=== PATIENT | female | born 1990 | race Caucasian/White ===

== ENCOUNTER 2023-07-15 11:57 | Inpatient (IN) ==
[2023-07-15 13:03] LABS: Urine Appearance Cloudy
[2023-07-15 13:06] LABS: Urine Color Orange; Urine Specific Gravity 1.032 (1.002-1.030)
[2023-07-15 13:11] LABS: Urine Bacteria 1+ /HPF (Absent); Urine Red Blood Cell 3+(>10/hpf) /HPF (0-Trace); Urine Squamous Epithelial Cell Present /HPF (Absent); Urine White Blood Cell 2+(11-20/hpf) /HPF (0-Trace)
[2023-07-15] MEDS: HYDROcodone/ACETAMIN 5/325 mg TAB PO ONE (14:15)
[2023-07-15] MEDS: Ondansetron ODT 4 mg TAB 4 MG TAB SL ONE (14:16)
[2023-07-15 16:16] LABS: Hematocrit 40.3 % (35-45); Hemoglobin 13.6 g/dL (11.5-14.3); Mean Corpuscular Hemoglobin 28.9 pg (27-33); Mean Corpuscular Hgb Conc 33.8 g/dL (31-36); Mean Corpuscular Volume 85.6 fL (80-97); Mean Platelet Volume 8.5 fL (7.5-11.2); Platelet Count 394 10^3/uL (150-450); Red Cell Distribution Width 13.4 % (12-17); White Blood Count 26.6 10^3/uL (3.8-11.8)
[2023-07-15 16:42] LABS: Albumin 4.5 g/dL (3.2-5.2); Albumin/Globulin Ratio 1.4 (1-3); C Reactive Protein 240.62 mg/L (<8.01); Calcium 9.6 mg/dL (8.6-10.3); Creatinine, Serum 0.68 mg/dL (0.51-0.95); Globulin 3.3 g/dL (2-4); Potassium 3.5 mmol/L (3.5-5.0); Total Bilirubin 1.2 mg/dL (0.2-1.0); Total Protein 7.8 g/dL (6.4-8.9); eGFR CKD-EPI 116.4 (>60)
[2023-07-15 16:43] LABS: HCG Pregnancy 1.14 mIU/mL
[2023-07-15 17:21] LABS: ABS Basophils 0.2 10^3/uL (0.0-0.1); ABS Eosinophils 0.1 10^3/uL (0.0-0.5); ABS Lymphocytes 2.1 10^3/uL (1.0-4.8); ABS Monocytes 1.5 10^3/uL (0.0-0.9); ABS Neutrophils 22.7 10^3/uL (1.5-7.6); ABS Nucleated RBC 0.01 10^3/ul; Eosinophil % 0.2 %; Lymphocyte % 7.8 %
[2023-07-15] MEDS: Iohexol 350 (CONTRAST) 500 ML MDV IV ONE (21:23)
[2023-07-15] MEDS ORDERED: Ondansetron 4 mg VIAL 2 MG/ML 2 ml VIAL IV PRN (22:28)
[2023-07-15] MEDS ORDERED: HYDROmorphone 1 MG/1 ML SYRINGE IV SLOW PU PRN (22:28)
[2023-07-15] MEDS: Morphine 4 MG/ML VIAL (1 ml) IV ONE (23:02)
[2023-07-16] MEDS: NS 0.9% 1000 ml BAG 1,000 ML IV ONE (00:14)
[2023-07-16] MEDS: Piperacillin/Tazobac 3.375 BAG 3.375 GM/100 ML BAG IV ONE (00:15)
[2023-07-16] MEDS: NS 0.9% 1000 ml BAG 1,000 ML IV SCH (03:55)
[2023-07-16] MEDS: Piperacillin/Tazobac 3.375 BAG 3.375 GM/100 ML BAG IV SCH (03:58)
[2023-07-16] MEDS ORDERED: Piperacillin/Tazobac 3.375 BAG 3.375 GM/100 ML BAG IV SCH (04:00)
[2023-07-16 05:58] LABS: ABS Basophils 0.1 10^3/uL (0.0-0.1); ABS Eosinophils 0.2 10^3/uL (0.0-0.5); ABS Lymphocytes 1.8 10^3/uL (1.0-4.8); ABS Monocytes 1.3 10^3/uL (0.0-0.9); ABS Neutrophils 17.6 10^3/uL (1.5-7.6); ABS Nucleated RBC 0.01 10^3/ul; Eosinophil % 0.8 %; Hematocrit 38.4 % (35-45); Hemoglobin 12.7 g/dL (11.5-14.3); Lymphocyte % 8.5 %; Mean Corpuscular Hemoglobin 28.4 pg (27-33); Mean Corpuscular Hgb Conc 33.1 g/dL (31-36); Mean Corpuscular Volume 85.8 fL (80-97); Mean Platelet Volume 8.7 fL (7.5-11.2); Platelet Count 379 10^3/uL (150-450); Red Blood Count 4.47 10^6/uL (3.63-4.92); Red Cell Distribution Width 13.7 % (12-17); White Blood Count 20.9 10^3/uL (3.8-11.8)
[2023-07-16 06:22] LABS: Albumin 3.9 g/dL (3.2-5.2); Albumin/Globulin Ratio 1.3 (1-3); Calcium 9.2 mg/dL (8.6-10.3); Creatinine, Serum 0.67 mg/dL (0.51-0.95); Globulin 2.9 g/dL (2-4); Potassium 3.4 mmol/L (3.5-5.0); Total Bilirubin 0.9 mg/dL (0.2-1.0); Total Protein 6.8 g/dL (6.4-8.9); eGFR CKD-EPI 116.8 (>60)
[2023-07-16 06:31] LABS: INR 1.32 (0.83-1.13)
[2023-07-16] MEDS ORDERED: HYDROmorphone 0.5 MG/0.5 ML SYRINGE IV SLOW PU PRN (08:36)
[2023-07-16] MEDS ORDERED: HYDROmorphone 1 MG/1 ML SYRINGE IV SLOW PU PRN (08:37)
[2023-07-16] MEDS: Acetaminophen IV 1 GM/100ML 1,000 MG/100 ML BAG IV SCH (09:37)
[2023-07-16] MEDS: Pneumococcal Vac 23-Polyvalent IM ONE (09:39)
[2023-07-16] MEDS: Influenza vaccine *QUAD* *2023-24* 0.5 ML SYRINGE IM ONE (09:40)
[2023-07-16] MEDS: D5W 1/2 NS KCl 20 meq 1000 ml 1,000 ML IV SCH (10:30)
[2023-07-16] MEDS: D5W 1/2 NS 1000 ml BAG 1,000 ML IV SCH (17:49)
[2023-07-17 06:06] LABS: ABS Basophils 0.1 10^3/uL (0.0-0.1); ABS Eosinophils 0.2 10^3/uL (0.0-0.5); ABS Lymphocytes 2.1 10^3/uL (1.0-4.8); ABS Monocytes 0.9 10^3/uL (0.0-0.9); ABS Neutrophils 11.5 10^3/uL (1.5-7.6); ABS Nucleated RBC 0.01 10^3/ul; Eosinophil % 1.6 %; Hematocrit 35.8 % (35-45); Hemoglobin 12.1 g/dL (11.5-14.3); Lymphocyte % 13.9 %; Mean Corpuscular Hgb Conc 33.8 g/dL (31-36); Mean Corpuscular Volume 85.7 fL (80-97); Mean Platelet Volume 8.4 fL (7.5-11.2); Nucleated Red Blood Cells % 0.1 %/100WBC (0.0-0.8); Platelet Count 411 10^3/uL (150-450); Red Blood Count 4.17 10^6/uL (3.63-4.92); Red Cell Distribution Width 13.8 % (12-17); White Blood Count 14.8 10^3/uL (3.8-11.8)
[2023-07-17 06:24] LABS: Calcium 8.8 mg/dL (8.6-10.3); Creatinine, Serum 0.6 mg/dL (0.51-0.95); Potassium 3.4 mmol/L (3.5-5.0)
[2023-07-17] MEDS ORDERED: HYDROmorphone 0.5 MG/0.5 ML SYRINGE IV SLOW PU PRN (09:36)
[2023-07-18 14:53] VITALS: BP 119/77
== END 2023-07-18 16:10 | disposition home or self-care (01) | DRG 392 ==
LOC: EDHOLD 11:57 → ED 11:57 → SSU 07-16 00:56
PROVIDERS: ADMIT Surgery; ATTEND Surgery